=== PATIENT | female | born 1955 | race African-American/Black ===

== ENCOUNTER → 2020-05-09 10:07 | Outpatient (BNVA) | payer MEDICARE, MEDICAID, SELFPAY | PROVIDERS: PCP Internal Medicine; Visit Provider Nurse Practitioner | DX: I69.891 Dysphagia following other cerebrovascular disease (principal); K59.00 Constipation, unspecified | CPT/HCPCS: 99213 ==

== ENCOUNTER 2020-05-15 14:37 | Outpatient (REF) | payer MEDICARE, MEDICAID, SELFPAY ==
--- NOTE | 2020-05-15 14:41 | FL_ITS ---
EXAMINATION: XR BARIUM SWALLOW CLINICAL INFORMATION: Dysphagia CVA. COMPARISON: None TECHNIQUE: Fluoroscopic guidance was provided for modified barium swallow performed by the speech and hearing department. FINDINGS: There is retention in the vallecula seen with all media. No aspiration or penetration is seen. The speech and hearing report for detailed findings. FLUOROSCOPY TIME: 3.4 mins DOSE AREA PRODUCT: 3.917 uGy-m2 (microgray-meter squared) FL/FL barium swallow modified IMPRESSION: Retention in the vallecula. No aspiration or penetration is seen.
--- NOTE | 2020-05-17 10:03 | MHC.SL.POC ---
[address] [address] Speech & Hearing [phone] Name: Aline Brennan Date of : 1955 Age: 65 Date of Registration: 05/15/20 Referring provider: Laurel Paulino NP Reason for Referral: Patient coughs when drinking liquids. Type of Treatment: 44641 Modified Barium Swallow Study Date of Plan of Treatment: 05/15/20 Onset of Symptoms/Illness: 05/08/20 Date Treatment Started: 05/15/20 Medical Diagnosis: Previous CVA Speech & Language Primary Diagnosis:R13.12 Oropharyngeal Phase Dysphagia Speech & Language Secondary Diagnosis: R47.1 Dysarthria OBJECTIVE: Lip closure for intraoral bolus containment resulted in bolus escape from the interlabial space or lateral juncture, but no extension beyond the vermilion border. Tongue control during bolus hold allowed posterior escape of greater than half of the bolus. Bolus preparation and mastication demonstrated disorganized chewing/mashing with solid pieces of the bolus unchewed. Bolus transport/lingual motion was with repetitive/disorganized motion of the tongue. Oral residue was a collection on oral structures. Initiation of the pharyngeal swallow occurred when the bolus head was in the pyriform sinuses. Soft palate elevation resulted in no bolus between the soft palate and the pharyngeal wall. Laryngeal elevation was incomplete, as indicated through minimal superior movement of the thyroid cartilage with minimal approximation of the arytenoids to the epiglottic petiole. Anterior hyoid excursion demonstrated partial anterior movement. Epiglottic movement resulted in partial inversion. Laryngeal vestibular closure was complete, as indicated by no air or contrast within the laryngeal vestibule at the height of the swallow. Pharyngeal stripping wave was present, but diminished. Pharyngeal contraction could not be determined due to logistical reasons not related to physiologic impairment. Pharyngoesophageal segment opening was completely distended for complete duration with no obstruction of bolus flow. Tongue base retraction allowed a wide column of contrast or air between the retracted tongue base and the posterior pharyngeal wall. Pharyngeal residue was a collection of residue within or on pharyngeal structures. Esophageal clearance in the upright position could not be assessed due to logistical reasons not related to physiologic impairment. Oral Impairment Score: 15 Pharyngeal Impairment Score: 10 (absence of score, component 13) Esophageal Impairment Score: --- (absence of score, component 17) Laryngeal Penetration and Aspiration: Neither penetration nor aspiration was observed in today's study with Cookie, [place]-thick, Thin. ASSESSMENT: This exam was conducted by radiologist and speech-language pathologist. Exam was completed in lateral view only with patient sitting upright in a chair. Patient trialed the following liquid and solid consistencies: -5 mL thin liquid barium -cup sip thin liquid barium -cup sip nectar thick liquid barium -pureed solid (apple sauce mixed with barium paste) -ground solid (chicken salad mixed with barium paste) Due to significant oral dysphagia, more advanced solids were withheld for patient safety. Patient displays moderate to severe oropharyngeal dysphagia, characterized by impairments in the following components of swallow physiology: ORAL PHASE: -escape from interlabial space but no extension beyond vermilion border -posterior escape of greater than 50% of bolus before initiation of swallow trigger -disorganized chewing/mashing -repetitive and laborious posterior tongue movements -anterior ?tongue pumping? behavior -moderate oral residue -delayed pharyngeal swallow trigger when bolus head reached pyriforms PHARYNGEAL PHASE: -minimal superior laryngeal movement -partial anterior hyoid movement and partial epiglottic inversion -complete laryngeal vestibular closure -diminished pharyngeal stripping wave -reduced tongue base retraction -moderate pharyngeal residue which subsequently cleared with double swallow Patient displayed significant impairment in oral phase of swallowing. Patient demonstrated anterior tongue pumping behavior when swallowing all consistencies. AP transport was repetitive and disorganized, resulting in posterior spillage of both solids and liquids. Food and liquid pooled in the valleculae and pyriforms prior to initiation of swallow trigger. Retention cleared with subsequent swallow. Posterior spillage and delayed swallow trigger put patient at risk for aspiration. Slight improvement in timing and coordination with thickened liquid by teaspoon and pureed solid. Moderate residue seen with ground solid. Oral preparation was significantly prolonged and appeared laborious. Moderate residue cleared with teaspoon of liquid. No aspiration or penetration evident during this exam. RECOMMENDATION: Recommendation for Speech Therapy: Speech Therapy through facility if available or [facility] Due to impaired oral phase, recommend downgrade diet texture to GROUND/MECHANICALLY ALTERED (National Dysphagia Diet Level 2). Patient is at risk of aspiration due to delayed pharyngeal swallow trigger, pharyngeal pooling, and premature posterior spillage. Recommend maintain NECTAR THICK liquids. The following precautions are crucial: -Patient is encouraged to feed herself when possible/appropriate. Recommend patient be assisted when needed. Total supervision is recommended to ensure precautions and strategies and to monitor for s/s of aspiration. -avoid sticky foods and mixed textures (i.e. cereal with milk) -moisten and soften food in sauce/gravy when possible -small bites of food -reminders to mash/chew food well before swallowing -reminders for double swallow or liquid wash -alternate bite of food with small sip of liquid -reminders to take one sip at a time, avoid consecutive sips or ?chugging? liquids -liquids by teaspoon or cup -no straws due to delay in swallow trigger -upright 90 degree position during meals -frequent oral care at least 4 times daily Patient would benefit from speech services for dysphagia treatment through facility if available or through [facility]. PLAN: Intake Recommendations: Route: PO Diet Grade: Mechanical Soft Liquid Consistencies: [place] Post-Study Functional Oral Intake Scale (FOIS): 5- Total oral intake of multiple consistencies requiring special preparation Therapy Recommendations: Therapy will be continued Frequency per Week: 1 Number of Weeks: 6 The following compensatory strategies and/or therapeutic exercises will be part of the upcoming therapy/management plan: Bolus Volume Change Rate of Ingestion Change Liquid Wash Additional Swallow(s) per Bolus Prognosis for Improvement: The prognosis for the patient to meet nutritional needs by mouth is fair based on . Frequency/Duration: 1x weekly x 6 weeks Date Range for Service Requested: Timeline to reassess: Notes: Patient is a 65 year old female who comes from a assisted. She attended this assessment with a assisted staff member. Patient is in a wheelchair. Patient had previous CVA. Barium swallow from 07/16/2016 showed, ?poor oropharyngeal coordination without laryngeal penetration or aspiration. Otherwise unremarkable barium swallow.? Chest x-ray was unremarkable for acute pathologies and brain CT was also unremarkable for acute intracranial pathologies on 09/14/19. Patient was recently seen on 05/08/20 by Laurel Paulino NP due to complaints of dysphagia after CVA, and a referral for this assessment was made to rule in/out aspiration. long term staff member reports that at baseline, patient?s meals are cut up into small bite size pieces by staff and liquids are prepared nectar thick. Staff member reports that patient presents with most difficulty swallowing liquids due to coughing. Goal #1 : ? Diet - The patient will tolerate a mechanical soft diet with nectar thick liquids without signs or symptoms of penetration/aspiration 100% of the time. - The patient will participate in therapeutic PO trials with the STACKER AND SORTER OPERATOR. Goal #2 : ? Guidelines - The patient will comply with/recall the following guidelines/strategies 100% of the time with moderate cuing: [place] thick Liquid, Bolus Volume Change, Rate of Ingestion Change, Liquid Wash, Additional Swallow(s) per Bolus, No Straws. Goal #3 : ? Education - The patient, caregiver will verbalize/demonstrate understanding of the results of this evaluation, the above recommendations, and the swallowing guidelines. Dynamometer Tester Engine Clinican/Clinical Fellow: No Supervisory Statement: I have reviewed and agree with the documentation written by the student/clinical fellow: N/A Speech Language Pathologist: Khadijah Lynch M.A., [facility]-STACKER AND SORTER OPERATOR
== END 2020-05-15 14:38 | disposition home or self-care (01) ==
LOC: HO.XRAY 14:37
PROVIDERS: PCP Internal Medicine; Referring Provider Nurse Practitioner; Visit Provider Internal Medicine
DX: I69.891 Dysphagia following other cerebrovascular disease (principal); R13.12 Dysphagia, oropharyngeal phase; I69.322 Dysarthria following cerebral infarction
CPT/HCPCS: 74230; 92611

== ENCOUNTER → 2020-09-21 10:51 | Outpatient (BNVA) | payer MEDICARE, MEDICAID, SELFPAY | PROVIDERS: PCP Internal Medicine; Visit Provider Internal Medicine Cardiovascular Disease | DX: I48.0 Paroxysmal atrial fibrillation (principal); I10 Essential (primary) hypertension; Z79.899 Other long term (current) drug therapy | CPT/HCPCS: 93005; 99212 ==

== ENCOUNTER → 2021-01-05 13:43 | Outpatient (BNVA) | payer MEDICARE, MEDICAID, SELFPAY | PROVIDERS: PCP Internal Medicine; Visit Provider Nurse Practitioner | DX: K59.00 Constipation, unspecified (principal); I69.891 Dysphagia following other cerebrovascular disease | CPT/HCPCS: 99212 ==

== ENCOUNTER 2021-03-29 10:23 | Outpatient (REF) | payer MEDICARE, MEDICAID, SELFPAY ==
[2021-03-29 12:56] LABS: Hematocrit 38.1 % (37-47); Hemoglobin 12.5 g/dl (12.0-16.0); Mean Corpuscular HGB Conc 32.8 g/dl (31.0-35.0); Mean Corpuscular Volume 88.4 fL (80-98); Mean Platelet Volume 12.8 fL (9.4-12.3); Platelet Count 193 X10*3/uL (160-400); Red Blood Count 4.31 X10*6/uL (4.20-5.50); Red Cell Distribution Width 13.6 % (11.0-16.0)
[2021-03-29 13:12] LABS: Anion Gap 13 (12-20); Blood Urea Nitrogen 12 mg/dL (9-16); Calcium 9.5 mg/dL (8.4-10.2); Carbon Dioxide 31 mmol/L (22-29); Chloride 102 mmol/L (96-108); Estimated Glomerular Filt Rate > 60; Glucose Random 94 mg/dL (60-115); Potassium 3.4 mmol/L (3.3-5.1); Sodium 143 mmol/L (135-145)
== END 2021-03-29 10:24 | disposition home or self-care (01) ==
LOC: HO.LAB 10:23
PROVIDERS: PCP Internal Medicine; Referring Provider Internal Medicine; Visit Provider Internal Medicine Cardiovascular Disease
DX: I48.0 Paroxysmal atrial fibrillation (principal); I10 Essential (primary) hypertension
CPT/HCPCS: 36415; 80048; 85027; 93005; 99212

== ENCOUNTER → 2021-06-29 12:33 | Outpatient (BNVA) | payer MEDICARE, MEDICAID, SELFPAY | PROVIDERS: PCP Internal Medicine; Visit Provider Nurse Practitioner | DX: I69.891 Dysphagia following other cerebrovascular disease (principal) | CPT/HCPCS: 99212 ==

== ENCOUNTER → 2021-10-31 09:28 | Outpatient (REF) | payer MEDICARE, MEDICAID, SELFPAY ==
--- NOTE | 2021-10-31 09:36 | CA_ITS ---
Transthoracic Echocardiogram Patient (Last, First, Middle): Aline Brennan, Gender: Female Date of : 1955 Age: 66 Procedure Date: 10/31/2021 Procedure Type: Transthoracic Echocardiogram Location: OP Height: 167.64 cm Weight: 72.5 kg BSA: 1.82 m2 Heart Rate: bpm BP: 110 / 70 mmHg Transitional Care Liaison: GURWINDER Referring MD: Nathan Pringle MD Welder Plastic: Nathan Pringle MD Symptoms: I48.0 - Paroxysmal atrial fibrillation Conclusions: - 1. Normal LV systolic function with grade 1 diastolic dysfunction 2. Normal cardiac valvular Doppler 3. Normal RV systolic pressure 4. No gross pericardial effusion Findings Left Ventricle Normal left ventricular size, thickness, and systolic function. The visually estimated ejection fraction is between 60-65%. Spectral Doppler is indicative of an impaired relaxation filling pattern. E/E prime ratio is <8, consistent with normal filling pressures. Evidence suggests grade I (mild) diastolic dysfunction. Right Ventricle Normal right ventricular cavity size and systolic function. Atria The left atrium is normal in size. There is no evidence of interatrial shunt. The right atrium is normal in size. Aortic Valve There is mild calcification of the aortic valve. There is moderate thickening of the aortic valve. There is no aortic valve stenosis. There is no aortic valve regurgitation. Mitral Valve There is mild anterior and posterior mitral leaflet thickening. There is mild mitral annular calcification. There is trace mitral valve regurgitation. There is no mitral valve stenosis. Pulmonic Valve The pulmonic valve was not well visualized. Tricuspid Valve Likely normal tricuspid valve structure and function. There is trace tricuspid valve regurgitation. The right ventricular systolic pressure is normal. The right ventricular systolic pressure is 23 mmHg. Normal right atrial pressure. There is no evidence of pulmonary hypertension. Great Vessels All visible segments of the aorta are normal in size. The pulmonary artery was not well visualized. Venous The inferior vena cava is normal in size and collapses greater than 50% with inspiration. Pericardium/Pleural There is no evidence of pericardial effusion. Prior Study Comparison No significant change compared to prior study dated: 12/03/2016. Measurements M-Mode Liner Measurements Normals - Women/Men IVSd: 1.34 0.6-0.9/0.6-1.0 cm LVIDd: 3.91 3.9-5.3/4.2-5.9 cm LVIDs: 2.52 2.0-3.8 cm LVPWd: 1.34 0.6-0.9/0.6-1.0 cm LV Mass: 235.47 67-162/88-224g M-Mode Volumes LV EDV: 66.30 LV ESV: 22.80 2D Linear Measurements IVSd: 1.15 0.6-0.9/0.6-1.0 cm LVIDd: 4.17 3.9-5.3/4.2-5.9 cm LVIDs: 2.86 2.0-3.6 cm LVPWd: 0.95 0.7-1.1 cm LA Diam: 3.10 2.7-3.8/3.0-4.0 cm LV Mass: 180.82 67-162/88-224 g LVOT Diam: 1.90 3.0+(-)1.3 cm 2D Systolic Function EF 4C: 55.20 >55% EF 2C: 61.60 >55% EF BiP: 57.40 >55% M-Mode Systolic Function FS: 35.50 27-47/25-43% LVEF: 65.60 >55% Mitral Valve MV Pk E: 0.39 MV PK A: 0.80 MV Decel Time: 320.00 E/A: 0.50 E'Lateral: 4.46 E'Medial: 3.37 E/E' Med: 11.60 E/E' Lat: 8.70 PHT: 94.00 MVA PHT: 2.34 Decel Coal: 1.22 Aortic Valve AoV Pk Frantz: 1.17 AoV Pk Grad: 5.00 LVOT LVOT Pk Frantz: 1.00 LVOT Mn Frantz: 0.57 LVOT VTI: 0.19 LVOT Pk Grad: 4.00 LVOT Mn Grad: 2.00 LVOT Diam: 1.90 LVOT Area: 2.84 Diastolic Function MV Pk E: 0.39 MV Pk A: 0.80 E/A: 0.50 E'Medial: 3.37 E/E' Med: 11.60 E' Laterial: 4.46 E/E' Lat: 8.70 Right Ventricle TAPSE (mm): 1.81 Tricuspid Valve TR Pk Frantz: 2.21 TR Pk Grad: 20.00 RA Press: 3.00 RVSP: 23.00 Great Vessels Aorta Sinus of Valsalva: 3.20 2.0-3.5 cm Ao Asc: 3.10 2.1-3.4 cm Updated in Other Vendor System with Status of Final Nathan Pringle MD electronically signed on 10/31/2021 1:23:26 PM with status of Final
== END ==
LOC: HO.CARD 09:28
PROVIDERS: Visit Provider Internal Medicine Cardiovascular Disease
DX: I48.0 Paroxysmal atrial fibrillation (principal)
CPT/HCPCS: 93306

== ENCOUNTER → 2021-11-14 13:27 | Outpatient (BNVA) | payer MEDICARE, MEDICAID, SELFPAY | PROVIDERS: PCP Internal Medicine; Referring Provider Student in an Organized Health Care Education/Training Program; Visit Provider Internal Medicine Cardiovascular Disease | DX: Z09 Encounter for follow-up examination after completed treatment for conditions other than malignant neoplasm (principal); I48.0 Paroxysmal atrial fibrillation; I10 Essential (primary) hypertension | CPT/HCPCS: 93005; 99212 ==

== ENCOUNTER → 2022-06-18 13:54 | Outpatient (BNVA) | payer MEDICARE, MEDICAID, SELFPAY | PROVIDERS: PCP Student in an Organized Health Care Education/Training Program; Visit Provider Nurse Practitioner Family | DX: R00.0 Tachycardia, unspecified (principal); I44.0 Atrioventricular block, first degree; I48.0 Paroxysmal atrial fibrillation; I69.954 Hemiplegia and hemiparesis following unspecified cerebrovascular disease affecting left non-dominant side; I69.912 Visuospatial deficit and spatial neglect following unspecified cerebrovascular disease; I69.998 Other sequelae following unspecified cerebrovascular disease; H53.9 Unspecified visual disturbance; I15.2 Hypertension secondary to endocrine disorders; Z09 Encounter for follow-up examination after completed treatment for conditions other than malignant neoplasm | CPT/HCPCS: 93005; 99212 ==

== ENCOUNTER → 2022-09-16 10:58 | Outpatient (BNVA) | payer MEDICARE, MEDICAID, SELFPAY | PROVIDERS: PCP Student in an Organized Health Care Education/Training Program; Visit Provider Internal Medicine Cardiovascular Disease | DX: I48.0 Paroxysmal atrial fibrillation (principal); I10 Essential (primary) hypertension; Z86.73 Personal history of transient ischemic attack (TIA), and cerebral infarction without residual deficits; Z79.01 Long term (current) use of anticoagulants; Z79.82 Long term (current) use of aspirin | CPT/HCPCS: 99212 ==

== ENCOUNTER 2023-03-20 13:11 | Outpatient (AMB) | payer MEDICARE, MEDICAID, SELFPAY ==
[2023-03-20 13:17] VITALS: BP 120/82; PULSE 73; BMI 25.8
--- NOTE | 2023-03-20 13:17 | A.OFFVIS_ITS ---
Intake Vital Signs 03/20/23 13:17 Height 5 ft 6 in Weight 160 lb BMI 25.8 BP 120/82 Blood Pressure Location Lt brachial Position Sitting Pulse 73 Intake Visit Reasons: 6 mth f/u Intake Note: 6 month f/u Wildlife Manager Required: No Emergency Management Coordinator: Emergency Management Coordinator Present Allergies No Known Allergies [No Known Allergies*] Allergy (Verified 03/20/23 13:28) Medication List - Last Reconciled 03/20/23 by Aleisha Franklin NP-C acetaminophen ER (Tylenol Arthritis Pain) 650 mg PO Q12H amlodipine 10 mg PO DAILY apixaban (Eliquis) 5 mg PO BID aspirin 81 mg PO DAILY docusate sodium 100 mg PO DAILY flecainide 50 mg PO BID levetiracetam (Keppra) 500 mg PO BID metoprolol succinate ER 100 mg PO DAILY risperidone 0.25 mg PO BEDTIME rosuvastatin 40 mg PO DAILY trazodone 100 mg PO BEDTIME HPI 6 mth f/u HPI Details Aline is a 67-year-old female past medical history of hypertension, CVA, paroxysmal atrial fibrillation who presents for follow-up. Today she presents with a member from her long-term care facility and sitting in a wheelchair. I am told she is now legally blind. Aline is able to answer questions with short responses. She denies having any chest discomfort, shortness of breath, heart palpitations, dizziness. No PND, orthopnea or lower leg edema. She is mostly sedentary and is able to stand with some assistance. She takes medications as prescribed. No bleeding issues reported with Eliquis. [facility] Medical History Diabetes mellitus HTN (hypertension) CVA (cerebral vascular accident) Paroxysmal atrial fibrillation Family History Father No problems noted. Mother No problems noted. Social History Alcohol intake: current Alcohol intake frequency: holidays/special occasions only Review of Systems Const All systems reviewed & are unremarkable except as noted in HPI and below ENT Denies dizziness Card Denies chest pain, Denies chest pain at rest, Denies chest pain with activity, Denies rapid heart rate, Denies pedal edema, Denies edema, Denies leg edema, Denies lightheadedness, Denies palpitations, Denies dyspnea, Denies dyspnea on exertion and Denies orthopnea Resp Denies cough, Denies dyspnea and Denies dyspnea on exertion GI Denies hematochezia and Denies change in stool character Musc Reports abnormal gait, Reports limited range of motion, Reports muscle cramps, Reports muscle weakness, Denies numbness, Denies radiating pain into limb, Denies stiffness and Denies tingling Neuro Reports abnormal gait, Denies dizziness, Denies numbness and Denies tingling Endo Denies palpitations Physical Exam Vital Signs: Last Vital Signs Pulse 73 03/20/23 13:17 BP 120/82 03/20/23 13:17 BMI result Body Mass Index 25.8 Const Other: Sitting in a wheelchair, looking mostly to the right side. Reported visual loss in both eyes. Follows directions, speech slurred General: comfortable and no acute distress Orientation/consciousness: oriented to person, oriented to place and oriented to time HEENT Other: Head turned mostly to the right during visit Neck Neck: Yes normal visual inspection Resp Effort & Inspection: normal respiratory effort Auscultation: clear to auscultation bilaterally, no crackles, no rales, no rhonchi and no wheezes Cardio Jugular venous distension: no JVD Rate: regular rate Rhythm: regular rhythm Heart sounds: S1 normal heart sound present, S2 normal heart sound present, no gallops, no murmurs and no rubs GI Inspection: Yes normal to inspection Neuro Other: Seems appropriate, limited verbalization General: oriented to person, oriented to place and oriented to time Extrem Other: Appears to move all extremities with some ataxia Psych Appearance: grossly normal Mental Status: mental status grossly normal Speech and movement: Normal speech and movement present Office Procedures EKG Details: Today, read by me, normal sinus rhythm, possible anterior infarct, appearance overall unchanged from prior EKG, rate 73, QTC manual reading 441 millisecond [id number], Complete Assessment & Plan Assessment & Plan (1) Paroxysmal atrial fibrillation: Code(s): I48.0 - Paroxysmal atrial fibrillation Plan: History of paroxysmal atrial fibrillation. On flecainide and metoprolol for rhythm control. EKG today shows sinus rhythm, QTC 441 milliseconds, rate 73. Patient denies any recent heart palpitations. She had been on Xarelto for anticoagulation however presented to [facility] last May with vision loss and mild left weakness. She was found to have a CVA. MRI of the brain showed early subacute right medial inferior temporal lobe and occipital lobe infarcts without hemorrhage transformation. She also has chronic right MCA and left PIPE LAYER vascular territory infarcts, chronic right cerebellar infarcts and chronic left cerebellar lacunar infarcts. Her anticoagulation was then changed to Eliquis. On follow-up visit aspirin was added as well. retirement member does confirm med compliance. Increased risk of bleeding with dual anticoagulation reviewed with her. She has visual loss however discussed need to watch for bleeding with detention member. Patient has no known history of bleeding. Cardiology follow- up in 6 months, sooner if needed (2) HTN (hypertension): Code(s): I10 - Essential (primary) hypertension Qualifiers: Hypertension type: primary hypertension Qualified Code(s): I10 - Essential (primary) hypertension Plan: Well controlled at present time. No medication changes made (3) CVA (cerebral vascular accident): Comment: Right hemiparesis, 05/2022 vision loss Code(s): I63.9 - Cerebral infarction, unspecified Qualifiers: CVA mechanism: unspecified Qualified Code(s): I63.9 - Cerebral infarction, unspecified Plan: As above (4) Hospital discharge follow-up: Code(s): Z09 - Encounter for follow-up examination after completed treatment for conditions other than malignant neoplasm Coding Level of Care Code Est Pt Level 4 (66360) Diagnoses Paroxysmal atrial fibrillation I48.0 Primary hypertension I10 Hypertension type: primary hypertension Cerebrovascular accident (CVA), unspecified mechanism I63.9 CVA mechanism: unspecified Hospital discharge follow-up Z09 CPT Codes EKG - CPT: 55811-[id number], Complete ([id number]) Time Spent (min) 26 Comment chart review, document, interview, assess
== END 2023-03-20 13:53 | disposition home or self-care (01) ==
PROVIDERS: PCP Student in an Organized Health Care Education/Training Program; Referring Provider Student in an Organized Health Care Education/Training Program; Visit Provider Nurse Practitioner Family
DX: I48.0 Paroxysmal atrial fibrillation (principal)
CPT/HCPCS: 93010; 99214

== ENCOUNTER → 2023-03-20 13:11 | Outpatient (BNVA) | payer MEDICARE, MEDICAID, SELFPAY | PROVIDERS: PCP Student in an Organized Health Care Education/Training Program; Referring Provider Student in an Organized Health Care Education/Training Program; Visit Provider Nurse Practitioner Family | DX: Z09 Encounter for follow-up examination after completed treatment for conditions other than malignant neoplasm (principal); I48.0 Paroxysmal atrial fibrillation; I10 Essential (primary) hypertension; Z86.73 Personal history of transient ischemic attack (TIA), and cerebral infarction without residual deficits; Z79.01 Long term (current) use of anticoagulants | CPT/HCPCS: 93005; 99212 ==

== ENCOUNTER 2023-05-27 13:44 | Outpatient (AMB) | payer MEDICARE, MEDICAID, SELFPAY ==
[2023-05-27 13:51] VITALS: BP 120/82; PULSE 90
--- NOTE | 2023-05-27 13:51 | MHC.OFFVIS ---
Intake Vital Signs 05/27/23 13:51 Height 5 ft 6 in BP 120/82 Blood Pressure Location Lt brachial Position Sitting Pulse 90 Intake Visit Reasons: FU [employer] Required: No Cardiology Consultant: Cardiology Consultant Present Accompanied by: direct care staff Allergies No Known Allergies [No Known Allergies*] Allergy (Verified 05/27/23 13:54) Medication List - Last Reconciled 05/27/23 by GIOVANNY AyalaC acetaminophen ER (Tylenol Arthritis Pain) 650 mg PO Q12H amlodipine 10 mg PO DAILY apixaban (Eliquis) 5 mg PO BID aspirin 81 mg PO DAILY docusate sodium 100 mg PO DAILY flecainide 50 mg PO BID levetiracetam (Keppra) 500 mg PO BID metoprolol succinate ER 100 mg PO DAILY risperidone 0.25 mg PO BEDTIME rosuvastatin 40 mg PO DAILY trazodone 100 mg PO BEDTIME HPI FU HPI Details Aline is a 68-year-old female with past medical history of hypertension, CVA, paroxysmal AFib who presents for follow-up. Today she reports that she has been doing well with no changes to her condition recently. She resides in a long-term care facility and is now legally blind. She does not ambulate without assistance and is mostly sitting in a wheelchair. She is able to answer questions with slurred speech, short responses only. She denies having chest discomfort, shortness of breath, heart palpitations, lightheadedness. She is sedentary and has been taking her medications when they are given to her. She needs them crushed at this point as she is not able to swallow whole pills. No bleeding issues reported [facility] Medical History Diabetes mellitus HTN (hypertension) CVA (cerebral vascular accident) Paroxysmal atrial fibrillation Family History Father No problems noted. Mother No problems noted. Social History Alcohol intake: current Alcohol intake frequency: holidays/special occasions only Review of Systems Const All systems reviewed & are unremarkable except as noted in HPI and below ENT Denies dizziness Card Denies chest pain, Denies chest pain at rest, Denies chest pain with activity, Denies rapid heart rate, Denies pedal edema, Denies edema, Denies leg edema, Denies lightheadedness, Denies palpitations, Denies dyspnea, Denies dyspnea on exertion and Denies orthopnea Resp Denies cough, Denies dyspnea and Denies dyspnea on exertion GI Denies hematochezia and Denies change in stool character Musc Reports abnormal gait, Reports limited range of motion, Denies muscle cramps, Denies muscle weakness, Denies numbness, Denies radiating pain into limb, Denies stiffness and Denies tingling Neuro Reports abnormal gait, Denies dizziness, Denies numbness and Denies tingling Endo Denies palpitations Physical Exam Vital Signs: Last Vital Signs Pulse 90 05/27/23 13:51 BP 120/82 05/27/23 13:51 Const General: cooperative, comfortable and no acute distress Orientation/consciousness: patient oriented x3 Neck Neck: Yes normal visual inspection Resp Effort & Inspection: normal respiratory effort Auscultation: clear to auscultation bilaterally, no crackles, no rales, no rhonchi and no wheezes Cardio Jugular venous distension: no JVD Rate: regular rate Rhythm: regular rhythm Heart sounds: S1 normal heart sound present, S2 normal heart sound present, no murmurs and no rubs Neuro General: patient oriented x3 Extrem General: Yes normal to inspection Psych Other: in wheelchair, visually impaired, unable to walk without assistance Mental Status: mental status grossly normal Speech and movement: Slurred speech present Office Procedures EKG Details: Today, read by me sinus rhythm, 1 fusion complex, can not exclude anterior infarct, rate 90, QTC 462 milliseconds [id number], Complete Assessment & Plan Assessment & Plan (1) Paroxysmal atrial fibrillation: Code(s): I48.0 - Paroxysmal atrial fibrillation Plan: History of paroxysmal atrial fibrillation. On flecainide and metoprolol for rhythm control. EKG today shows sinus rhythm, QTC 462 milliseconds, rate 90. Patient denies any recent heart palpitations. She had been on Xarelto for anticoagulation however [place] [facility] [place] loss and mild left weakness. She was found to have a CVA. MRI of the brain showed early subacute right medial inferior temporal lobe and occipital lobe infarcts without hemorrhage transformation. She also has chronic right MCA and left [employer] vascular territory infarcts, chronic right cerebellar infarcts and chronic left cerebellar lacunar infarcts. Her anticoagulation was then changed to Eliquis. On follow-up visit aspirin was added as well. senior living member does confirm med compliance. Increased risk of bleeding with dual anticoagulation reviewed with her. She has visual loss however discussed need to watch for bleeding with longterm member. Patient has no known history of bleeding. Cardiology follow-up in 6 months, sooner if needed (2) HTN (hypertension): Code(s): I10 - Essential (primary) hypertension Qualifiers: Hypertension type: primary hypertension Qualified Code(s): I10 - Essential (primary) hypertension Plan: Well controlled at present time. No medication changes made (3) CVA (cerebral vascular accident): Comment: Right hemiparesis, 05/2022 vision loss Code(s): I63.9 - Cerebral infarction, unspecified Qualifiers: CVA mechanism: unspecified Qualified Code(s): I63.9 - Cerebral infarction, unspecified Plan: As above Coding Level of Care Code Est Pt Level 3 (58460) Diagnoses Paroxysmal atrial fibrillation I48.0 Primary hypertension I10 Hypertension type: primary hypertension Cerebrovascular accident (CVA), unspecified mechanism I63.9 CVA mechanism: unspecified CPT Codes EKG - CPT: 32776-[id number], Complete ([id number]) Time Spent (min) 24
== END 2023-05-27 14:21 | disposition home or self-care (01) ==
PROVIDERS: PCP Student in an Organized Health Care Education/Training Program; Visit Provider Nurse Practitioner Family
DX: I48.0 Paroxysmal atrial fibrillation (principal); I10 Essential (primary) hypertension; I63.9 Cerebral infarction, unspecified
CPT/HCPCS: 93010; 99213

== ENCOUNTER → 2023-05-27 13:44 | Outpatient (BNVA) | payer MEDICARE, MEDICAID, SELFPAY | PROVIDERS: PCP Student in an Organized Health Care Education/Training Program; Visit Provider Nurse Practitioner Family | DX: I48.0 Paroxysmal atrial fibrillation (principal); I63.9 Cerebral infarction, unspecified; I10 Essential (primary) hypertension | CPT/HCPCS: 93005; 99212 ==

== ENCOUNTER 2023-12-26 14:33 | Outpatient (AMB) | payer MEDICARE, MEDICAID, SELFPAY ==
[2023-12-26 14:41] VITALS: BP 110/60; PULSE 69; BMI 23.7
--- NOTE | 2023-12-26 14:41 | MHC.OFFVIS ---
Vital Signs 12/26/23 14:41 Height 5 ft 6 in Weight 147 lb BMI 23.7 BMI Reason not done Patient refused/unable BP 110/60 Blood Pressure Location Lt brachial Position Sitting Pulse 69 Pulse Source Monitor Intake Visit Reasons: 6 MONTH F/U Allergies No Known Allergies [No Known Allergies*] Allergy (Verified 05/27/23 13:54) Medication List - Last Reconciled 01/05/24 by Marcie Savage NP acetaminophen ER (Tylenol Arthritis Pain) 650 mg PO Q12H amlodipine 10 mg PO DAILY 90 days apixaban (Eliquis) 5 mg PO BID aspirin 81 mg PO DAILY docusate sodium 100 mg PO DAILY flecainide 50 mg PO BID 90 days levetiracetam (Keppra) 500 mg PO BID metoprolol succinate ER 100 mg PO DAILY risperidone 0.25 mg PO BEDTIME rosuvastatin 40 mg PO DAILY HPI Comments Details: 68-year-old female presents today for a follow-up. She had last seen Dr. Pringle in September 2022. She is present with a aide from the facility. She denies chest pains, shortness of breath, lightheadedness, palpitations, or bleeding. COUNT INCLUDES THE [facility] Medical History Diabetes mellitus HTN (hypertension) CVA (cerebral vascular accident) Paroxysmal atrial fibrillation Family History Father No problems noted. Mother No problems noted. Social History Alcohol intake: current Alcohol intake frequency: holidays/special occasions only Review of Systems Const Denies weakness ENT Denies dizziness Card Denies chest pain, Denies chest pain with activity, Denies syncope, Denies rapid heart rate, Denies pedal edema, Denies edema, Denies leg edema, Denies lightheadedness, Denies palpitations, Denies dyspnea, Denies dyspnea on exertion and Denies orthopnea Resp Denies cough, Denies dyspnea and Denies dyspnea on exertion GI Denies hematochezia and Denies change in stool character Musc Denies abnormal gait, Denies muscle cramps, Denies muscle weakness, Denies numbness, Denies radiating pain into limb and Denies tingling Neuro Denies abnormal gait, Denies dizziness, Denies syncope, Denies numbness, Denies tingling and Denies weakness Endo Denies palpitations Physical Exam Vital Signs: Last Vital Signs Pulse 69 12/26/23 14:41 BP 110/60 12/26/23 14:41 BMI result Body Mass Index 23.7 Const General: healthy appearing and no acute distress Orientation/consciousness: patient oriented x3 HEENT Head: Yes normal to inspection Eyes General: appearance normal, both eyes and all related structures Neck Neck: Yes normal visual inspection Chest Chest palpation & inspection: normal inspection of the chest Resp Effort & Inspection: normal respiratory effort Auscultation: clear to auscultation bilaterally Cardio Jugular venous distension: no JVD Palpation: normal PMI Rate: regular rate Rhythm: regular rhythm Heart sounds: S1 normal heart sound present, S2 normal heart sound present, no click, no gallops, no murmurs and no rubs GI Inspection: Yes normal to inspection Palpation (GI): Soft to palpation Skin General skin exam: no rashes or lesions noted Neuro General: patient oriented x3 Extrem General: Yes normal to inspection Psych Appearance: grossly normal Office Procedures EKG Details: Normal Sinus Rhythm. Low voltage QRS. Nonspecific T wave abnormality. Rate 69 bpm. QRS 88ms. QTc 441ms. MT 192ms. [id number], Complete Assessment & Plan Assessment & Plan (1) Paroxysmal atrial fibrillation: Code(s): I48.0 - Paroxysmal atrial fibrillation Category: Medical Plan: On flecanide 50mg BID. No reports of rapid rates or palpitations. On eliquis. Signs of bleeding reviewed. (2) HTN (hypertension): Code(s): I10 - Essential (primary) hypertension Category: Medical Qualifiers: Hypertension type: primary hypertension Qualified Code(s): I10 - Essential (primary) hypertension Plan: Within range today. On amlodipine and metoprolol. Plan Patient in a detention. Orders: Orders CA echo transthoracic complete 12/26/23 I48.0 - Paroxysmal atrial fibrillation, I10 - Essential (primary) hypertension Medications: Changed From amlodipine 10 mg PO DAILY To amlodipine 10 mg PO DAILY 90 tabs 1RF 90 days Refilled aspirin 81 mg PO DAILY 90 tabs 3RF Coding Level of Care Code Est Pt Level 3 (17521) Diagnoses Paroxysmal atrial fibrillation I48.0 Primary hypertension I10 Hypertension type: primary hypertension CPT Codes EKG - CPT: 55487-[id number], Complete ([id number])
== END 2023-12-26 15:24 | disposition home or self-care (01) ==
LOC: HO.HCS 14:33
PROVIDERS: PCP Student in an Organized Health Care Education/Training Program; Visit Provider Nurse Practitioner
DX: R94.31 Abnormal electrocardiogram [ECG] [EKG] (principal)
CPT/HCPCS: 93010; 99213

== ENCOUNTER → 2023-12-26 14:33 | Outpatient (BNVA) | payer MEDICARE, MEDICAID, SELFPAY | PROVIDERS: PCP Student in an Organized Health Care Education/Training Program; Visit Provider Nurse Practitioner | DX: I48.0 Paroxysmal atrial fibrillation (principal); I10 Essential (primary) hypertension; Z79.01 Long term (current) use of anticoagulants; Z79.899 Other long term (current) drug therapy | CPT/HCPCS: 93005; 99212 ==

== ENCOUNTER → 2024-01-13 14:02 | Outpatient (REF) | payer MEDICARE, MEDICAID, SELFPAY ==
--- NOTE | 2024-01-13 14:07 | CA_ITS ---
Transthoracic Echocardiogram Patient (Last, First, Middle): Aline Brennan, Gender: Female Date of : 1955 Age: 68 Procedure Date: 01/13/2024 Procedure Type: Transthoracic Echocardiogram Location: OP Height: 167.64 cm Weight: 50.8 kg BSA: 1.56 m2 Heart Rate: bpm BP: 138 / 88 mmHg Structural Mill Supervisor: ROYAL Referring MD: Marcie Savage NP Symptoms: I48.0 - Paroxysmal atrial fibrillation Study Quality: Fair ECG Rhythm: Sinus Conclusions: - The left ventricular systolic function is mildly decreased. The visually estimated ejection fraction is between 45-50%. - No obvious valvular pathology seen on this study. Findings Procedure Information The study quality is limited by patients body habitus. Left Ventricle Normal left ventricular cavity size. There is normal left ventricular wall thickness. The left ventricular systolic function is mildly decreased. The visually estimated ejection fraction is between 45-50%. There is mild global hypokinesis. Evidence suggests grade I (mild) diastolic dysfunction. Right Ventricle Normal right ventricular cavity size. There is mildly decreased right ventricular systolic function. Atria Both atria are normal in size. Aortic Valve There is mild calcification of the aortic valve. There is no aortic valve stenosis. There is no aortic valve regurgitation. Mitral Valve The mitral valve appears normal. There is no mitral valve regurgitation. There is no mitral valve stenosis. Pulmonic Valve The pulmonic valve is likely normal. Tricuspid Valve There is no tricuspid valve regurgitation. Tricuspid regurgitation envelope is inadequate for calculation of right ventricular systolic pressure. Great Vessels The asc aorta is normal in size. Venous The inferior vena cava is normal in size and collapses greater than 50% with inspiration. Pericardium/Pleural There is no evidence of pericardial effusion. Recommendations, Care & Conclusions No obvious valvular pathology seen on this study. Measurements 2D Linear Measurements IVSd: 0.96 0.6-0.9/0.6-1.0 cm LVIDd: 4.35 3.9-5.3/4.2-5.9 cm LVIDd Index: 2.79 2.4-3.2/2.2-3.1 cm/m2 LVIDs: 2.92 2.0-3.6 cm LVPWd: 0.83 0.7-1.1 cm LA Diam: 2.40 2.7-3.8/3.0-4.0 cm LAIDs Index: 1.54 1.5-2.3 cm/m2 LV Mass: 155.13 67-162/88-224 g LV Mass Index: 99.44 43-95/49-115 g/m2 LVOT Diam: 2.20 3.0+(-)1.3 cm 2D Systolic Function EF 4C: 53.40 >55% EF 2C: 52.10 >55% EF BiP: 52.60 >55% Mitral Valve MV Pk E: 0.38 MV Decel Time: 150.00 E'Lateral: 3.48 E'Medial: 2.61 E/E' Med: 14.40 E/E' Lat: 10.80 PHT: 57.00 MVA PHT: 3.86 Decel Walsh: 1.95 Aortic Valve AoV Pk Frantz: 1.12 AoV Pk Grad: 5.00 LVOT LVOT Pk Frantz: 0.78 LVOT Mn Frantz: 0.47 LVOT VTI: 0.14 LVOT Pk Grad: 2.00 LVOT Mn Grad: 1.00 LVOT Diam: 2.20 LVOT Area: 3.80 Diastolic Function MV Pk E: 0.38 E'Medial: 2.61 E/E' Med: 14.40 E' Laterial: 3.48 E/E' Lat: 10.80 Right Ventricle TAPSE (mm): 15.60 TVS' Frantz: 7.39 Tricuspid Valve RA Press: 3.00 Great Vessels Aorta Sinus of Valsalva: 3.23 2.0-3.[address] [place]: 2.39 1.7-3.4 cm Ao Asc: 3.30 2.1-3.4 cm Updated in Other Vendor System with Status of Final Clarence Puri MD electronically signed on 01/15/2024 11:31:59 AM with status of Final
== END ==
LOC: HO.CARD 14:02
PROVIDERS: PCP Student in an Organized Health Care Education/Training Program; Visit Provider Internal Medicine Cardiovascular Disease
DX: I48.0 Paroxysmal atrial fibrillation (principal); I10 Essential (primary) hypertension
CPT/HCPCS: 93306

== ENCOUNTER → 2024-01-13 14:07 | Outpatient (BNV) | payer MEDICARE, MEDICAID, SELFPAY | PROVIDERS: PCP Student in an Organized Health Care Education/Training Program; Visit Provider Internal Medicine | DX: I35.8 Other nonrheumatic aortic valve disorders (principal); I48.0 Paroxysmal atrial fibrillation | CPT/HCPCS: 93306 ==

== ENCOUNTER → 2024-04-16 08:04 | Outpatient (REF) | payer MEDICARE, MEDICAID, SELFPAY ==
--- NOTE | ~2024-04-16 | NM_ITS ---
Lexiscan Myocardial perfusion study Indication: Coronary artery disease Technique: The patient was brought in for a Lexiscan perfusion study on 04/16/2024 and was injected 0.4 mg of Lexiscan intravenously. Within a minute of this injection 25 mCi of sestamibi was given intravenously. Images were obtained using the SPECT gamma camera interlaced with the gating device. Images were obtained in supine position. Resting perfusion study was performed on 04/20/2024. Patient was administered 25 mCi of sestamibi intravenously at rest. Images were then obtained in supine position. Total DLP 99 mGy-cm. Images were processed with the software and compared side to side in short axis, horizontal long axis and vertical long axis views. Findings: Raw aquisition reviewed. The stress perfusion study showed decreased tracer uptake in the inferior and inferolateral wall from base to apex. There is also adjacent subdiaphragmatic uptake. With CT attenuation correction, there is some improvement but difficult to assess due to subdiaphragmatic uptake. The gated study shows diminished LV systolic function with calculated LVEF of 47%. LV cavity is normal in size. The gated study shows diminished contractility in the inferior wall more towards the apex. Resting study shows diminished tracer uptake in the basal to mid part of inferior/inferolateral wall. There is improvement with CT attenuation correction and hence could have components of diaphragmatic attenuation artifact. Gating at rest reveals normal wall motion with ejection fraction at 44%. The findings are consistent with severely reversible perfusion defect in the mid to distal inferior/inferolateral wall. NM/NM cardiolite stress test Impression: 1. Myocardial perfusion imaging study shows severe ischemia in the inferior/inferolateral wall. 2. Gated LVEF is 47% during stress and 44% during rest. 3. Transient ischemic dilatation not present. EKG component of the test reported separately. Electronically signed by: Clarence Puri MD 04/20/2024 03:53 PM EDT
--- NOTE | 2024-04-16 08:12 | CA_ITS ---
Acquisition Time: 2024-04-16 08:05:48 Total Exercise Time: 00:02:00 Test Indications: ESSENT. HTN Medications: Protocol: LEXISCAN Max HR: 108 BPM 71% of Pred: 151 BPM Max BP: 140/082 mmHG Max Work Load: 1.0 METS Pharmacological stress test with Lexiscan injection while sitting and marching in place, without anginal symptoms, with isolated PVCs, with normotensive response to injection, with nondiagnoisitic EKGs. Aminophylline 75mg IVP given to reverse Lexiscan. Nuclear images pending. Test reviewed with Dr. Bradford. Referred By: Marcie Savage Overread By: Marcie Savage
== END ==
LOC: HO.CARD 08:04
PROVIDERS: PCP Student in an Organized Health Care Education/Training Program; Visit Provider Nurse Practitioner
DX: I10 Essential (primary) hypertension (principal); I48.0 Paroxysmal atrial fibrillation; R93.1 Abnormal findings on diagnostic imaging of heart and coronary circulation
CPT/HCPCS: 78452; 93017; A9500; J0280; J2785

== ENCOUNTER → 2024-04-16 08:12 | Outpatient (BNV) | payer MEDICARE, MEDICAID, SELFPAY | PROVIDERS: PCP Student in an Organized Health Care Education/Training Program; Visit Provider Nurse Practitioner | DX: I25.5 Ischemic cardiomyopathy (principal) | CPT/HCPCS: 78452; 93016; 93018 ==

== ENCOUNTER 2024-07-20 08:33 | Outpatient (AMB) | payer MEDICARE, MEDICAID, SELFPAY ==
[2024-07-20 08:37] VITALS: BP 112/64; PULSE 60
--- NOTE | 2024-07-20 08:37 | A.OFFVIS_ITS ---
Vital Signs 07/20/24 08:37 Height 5 ft 6 in BMI Reason not done Patient refused/unable BP 112/64 Blood Pressure Location Lt brachial Position Sitting Pulse 60 Intake Visit Reasons: 6 month f/up/ cta [employer] Assayer Required: No Wireless Sales Representative: Wireless Sales Representative Present Accompanied by: Other Relationship Allergies No Known Allergies [No Known Allergies*] Allergy (Verified 05/27/23 13:54) Medication List - Last Reconciled 07/20/24 by Nathan Pringle MD acetaminophen ER (Tylenol Arthritis Pain) 650 mg PO Q12H amlodipine 10 mg PO DAILY 90 days apixaban (Eliquis) 5 mg PO BID aspirin 81 mg PO DAILY clonidine HCl 0.2 mg PO DAILY PRN docusate sodium 100 mg PO DAILY dronedarone (Multaq) 400 mg PO BID levetiracetam (Keppra) 500 mg PO BID potassium chloride 10 mEq PO DAILY rosuvastatin 40 mg PO DAILY HPI Comments Details: Aline comes for follow-up, accompanied by patient school child care attendant from the [facility]. Patient was minimal functionality and is currently mostly wheelchair-bound. No new cardiac symptoms. Denies any prolonged palpitation. Denies any shortness of breath or orthopnea or PND. No chest pain. She had a myocardial perfusion imaging which shows severe inferior inferolateral ischemia although she has no symptoms of angina probably due to reduce functionality. Her flecainide was switch to dronedarone therapy and she is tolerating this well. She has not undergone a CTA. [facility] Medical History Diabetes mellitus HTN (hypertension) CVA (cerebral vascular accident) Paroxysmal atrial fibrillation Family History Father No problems noted. Mother No problems noted. Social History Alcohol intake: current Alcohol intake frequency: holidays/special occasions only Patient Tobacco Use Status: Never used Tobacco Review of Systems Const Denies chills, Denies fatigue, Denies fever(s), Denies weight gain and Denies weight loss ENT Denies dizziness Card Denies chest pain, Denies leg edema, Denies lightheadedness, Denies palpitations, Denies dyspnea on exertion, Denies orthopnea and Denies other Resp Denies cough and Denies dyspnea on exertion GI Denies hematochezia and Denies change in stool character Musc Denies abnormal gait, Denies muscle weakness, Denies numbness, Denies radiating pain into limb and Denies tingling Neuro Denies abnormal gait, Denies dizziness, Denies numbness and Denies tingling Endo Denies fatigue and Denies palpitations Physical Exam Vital Signs: Last Vital Signs Pulse 60 07/20/24 08:37 BP 112/64 07/20/24 08:37 Const General: cooperative, comfortable and no acute distress Orientation/consciousness: patient oriented x3 Neck Neck: Yes normal visual inspection Resp Effort & Inspection: normal respiratory effort Auscultation: clear to auscultation bilaterally, no crackles, no rales, no rhonchi and no wheezes Cardio Jugular venous distension: no JVD Rate: regular rate Rhythm: regular rhythm Heart sounds: S1 normal heart sound present, S2 normal heart sound present, no murmurs and no rubs Neuro General: patient oriented x3 Extrem General: Yes normal to inspection Psych Other: in wheelchair, visually impaired, unable to walk without assistance Mental Status: mental status grossly normal Speech and movement: Slurred speech present Office Procedures EKG Details: EKG shows poor baseline with normal sinus rhythm with first-degree AV block with normal QT interval with T-wave inversion inferolateral leads [id number], Complete Assessment & Plan Assessment & Plan (1) Paroxysmal atrial fibrillation: Code(s): I48.0 - Paroxysmal atrial fibrillation Category: Medical Plan: Paroxysmal atrial fibrillation, highly symptomatic. Switched oral antiarrhythmic drug therapy from flecainide to Multaq due to presence of severe ischemia and likelihood of underlying obstructive CAD. She is tolerating this therapy well without any recurrent atrial fibrillations. Management was discussed in details. She has prior history of multiple strokes which appear to be embolic as well as possibly vascular. Continue full oral anticoagulation with Eliquis 5 mg b.i.d.. Quarterly renal function test should be done. Continue low-dose aspirin therapy as additional therapy. Increase risk of bleeding was discussed. Avoidance of stimulants was discussed. Continue blood pressure control which is currently well optimized. Continue supportive care. Will need EKGs every 3 months while on Multaq therapy. Follow up in the clinic in 1 year's time. (2) Abnormal nuclear stress test: Code(s): R94.39 - Abnormal result of other cardiovascular function study Category: Medical Plan: Abnormal myocardial perfusion imaging suggestive of underlying coronary artery disease. She has no symptoms related to it. Continue aggressive medical therapy. Currently on aspirin therapy. Continue high-intensity statin therapy. Target goal LDL less than 70 mg/dL being pursue through your office. Blood pressure is well optimized. Currently will pursue conservative management given lack of any symptoms. Will follow up in the clinic every 3 months for EKG in 1 year with me. Thank you for allowing me to partake in her care Coding Level of Care Code Est Pt Level 4 (71409) Complex EM visit Add On G2211 Diagnoses Paroxysmal atrial fibrillation I48.0 Abnormal nuclear stress test R94.39 CPT Codes EKG - CPT: 27940-[id number], Complete ([id number])
== END 2024-07-20 09:05 | disposition home or self-care (01) ==
PROVIDERS: PCP Student in an Organized Health Care Education/Training Program; Visit Provider Internal Medicine Cardiovascular Disease
DX: I48.0 Paroxysmal atrial fibrillation (principal); R94.39 Abnormal result of other cardiovascular function study
CPT/HCPCS: 93010; 99214; G2211

== ENCOUNTER → 2024-07-20 08:33 | Outpatient (BNVA) | payer MEDICARE, MEDICAID, SELFPAY | PROVIDERS: PCP Student in an Organized Health Care Education/Training Program; Visit Provider Internal Medicine Cardiovascular Disease | DX: I48.0 Paroxysmal atrial fibrillation (principal); R94.39 Abnormal result of other cardiovascular function study; I44.0 Atrioventricular block, first degree | CPT/HCPCS: 93005; 99212 ==